=== PATIENT | female | born 1970 | race Caucasian/White ===

== ENCOUNTER → 2017-08-18 | Outpatient (CLI) | payer OTHER, BC ==
--- NOTE | 2017-08-18 14:09 | XR ---
EXAMINATION TYPE: XR chest 2V DATE OF EXAM: 08/18/2017 COMPARISON: NONE HISTORY: C50.311 Breast Cancer TECHNIQUE: Frontal and lateral views of the chest are obtained. FINDINGS: There is no focal air space opacity. No evidence for pneumothorax. No pleural effusion. The cardiac silhouette size is within normal limits. The osseous structures are grossly intact. IMPRESSION: 1. No acute cardiopulmonary process.
== END | disposition home or self-care (01) ==
LOC: RADXRMAIN 10:26
PROVIDERS: ATTEND Internal Medicine Hematology & Oncology
DX: C50.311 Malignant neoplasm of lower-inner quadrant of right female breast (principal); Z71.3 Dietary counseling and surveillance
CPT/HCPCS: 71046

== ENCOUNTER → 2018-07-09 | Outpatient (CLI) | payer BC ==
--- NOTE | 2018-07-09 11:52 | XR ---
EXAMINATION TYPE: XR chest 2V DATE OF EXAM: 07/09/2018 COMPARISON: 08/18/2017 TECHNIQUE: PA and lateral views submitted. HISTORY: Breast cancer FINDINGS: The lungs are clear and there is no pneumothorax, pleural effusion, or focal pneumonia. Hypertrophi c change of the right AC joint. Surgical clips in the abdomen. IMPRESSION: 1. No acute process.
--- NOTE | 2018-07-09 17:22 | BD ---
EXAMINATION TYPE: Axial Bone Density DATE OF EXAM: 07/09/2018 COMPARISON: NONE CLINICAL HISTORY: 48 year-old female history of breast cancer, postmenopausal screening Height: 60.7 IN Weight: 173 LBS FRAX RISK QUESTIONS: Secondary Osteoporosis: 5. Chronic liver disease: FATTY LIVER RISK FACTORS HISTORY OF: Active: YES Diet low in dairy products/other sources of calcium: YES Postmenopausal woman: AGE 45 TOTAL HYST MEDICATIONS: Additional Medications: VIT D ONCE PER MONTH 50,000 UNITS, PRILOSEC, ADDERALL, EFFEXOR, CANCER BLOCK ER, MULTI VIT, Additional History: BREAST CANCER WITH CHEMO AGE 44 EXAM MEASUREMENTS: Bone mineral densitometry was performed using the [employer] System. Bone mineral density as measured about the Lumbar spine is: ----- L1-L4(G/cm2): 1.027 T Score Values are as follows: ----- L2: -1.6 ----- L3: -1.3 ----- L4: -1.6 ----- L1-L4: -1.3 Bone mineral density BASELINE Bone mineral density about the R hip (g/cm2): 0.979 Bone mineral density about the L hip (g/cm2): 1.052 T Score values are as follows: -----R Neck: -0.4 -----L Neck: 0.1 -----R Total: -0.4 -----L Total: 0.1 Bone mineral density BASELINE IMPRESSION: Osteopenia (T Score between -2.5 and -1). There is slightly increased risk of fracture and the patient may be considered for treatment. Re-Screen 2-5 years. NOTE: T-SCORE=SD OF THE YOUNG ADULT MEAN.
== END | disposition home or self-care (01) ==
LOC: RADBDWWP 10:08
PROVIDERS: ATTEND Internal Medicine Hematology & Oncology
DX: C50.311 Malignant neoplasm of lower-inner quadrant of right female breast (principal); D50.9 Iron deficiency anemia, unspecified; F90.0 Attention-deficit hyperactivity disorder, predominantly inattentive type; M85.80 Other specified disorders of bone density and structure, unspecified site; N95.1 Menopausal and female climacteric states; Z71.3 Dietary counseling and surveillance; Z88.0 Allergy status to penicillin
CPT/HCPCS: 71046; 77080

== ENCOUNTER → 2021-03-18 | Outpatient (CLI) | payer BC ==
--- NOTE | 2021-03-18 11:46 | BD ---
EXAMINATION TYPE: Axial Bone Density DATE OF EXAM: 03/18/2021 COMPARISON: 07.09.2018 CLINICAL HISTORY: 50 YR OLD FEMALE.....ICD-10 CODE: M85.9 OSTEOPENIA, Z03.89 METS OBSERVATION Height: 51.2 Weight: 183 FRAX RISK QUESTIONS: History of Fracture in Adulthood: YES 5. Chronic liver disease: FATTY LIVER RISK FACTORS HISTORY OF: YES, ANKLE YR AGO Postmenopausal woman: TOTAL HYST AT AGE 45 Lost more than 2 inches in height since high school: YES Hyperparathyroidism: NO Adrenal Insufficiency: NO MEDICATIONS: Prednisone or other steroids: INHALER PRN Additional Medications: ADDERALL, PRISTIQUE, TAMOXIFEN, REFLUX MEDS, VIT D, MULTIVITAMIN, CHEMO, Additional History: HX OF BREAST CA WITH CHEMO AT 44 YRS OLD, ADD, REFLUX, EXAM MEASUREMENTS: Bone mineral densitometry was performed using the [employer] System. Bone mineral density as measured about the Lumbar spine is: ----- L1-L4(G/cm2): 1.004 T Score Values are as follows: ----- L1: -1.5 ----- L2: -1.6 ----- L3: -1.3 ----- L4: -1.6 ----- L1-L4: -1.5 Bone mineral density has: Decreased -0.4% since study of: 07.09.2018 Bone mineral density about the R hip (g/cm2): 0.971 Bone mineral density about the L hip (g/cm2): 1.041 T Score values are as follows: -----R Neck: -0.6 -----L Neck: -0.2 -----R Total: -0.3 -----L Total: 0.3 Bone mineral density has: Increased 1.4% since study of: 07.09.2018 FRAX%s: THERE IS A 7.4% CHANCE FOR A MAJOR OSTEOPOROTIC FX AND A 0.3% FOR HIP.....PROBABILITY FOR FX IN 10 YRS TIME IMPRESSION: Osteopenia NOTE: T-SCORE=SD OF THE YOUNG ADULT MEAN.
== END | disposition home or self-care (01) ==
LOC: RADBDWWP 08:44
PROVIDERS: ATTEND Internal Medicine Hematology & Oncology
DX: M85.88 Other specified disorders of bone density and structure, other site (principal); Z78.0 Asymptomatic menopausal state
CPT/HCPCS: 77080